=== PATIENT | female | born 1980 | race Asian ===

== ENCOUNTER → 2016-08-11 | Outpatient (CLI) | payer OTHER ==
[~2016-08-11] MED LIST: ACET50TA PO; IBUP80TA PO
[2016-08-11 12:20] LABS: MEAN CORPUSCULAR HEMOGLOBIN 34.3 pg (27.0-33.0); MEAN CORPUSCULAR HGB CONC 34.7 g/dl (32.0-36.5); MEAN CORPUSCULAR VOLUME 99.1 fl (80.0-96.0); RED CELL DISTRIBUTION WIDTH 12.7 % (11.5-14.5)
[2016-08-11 12:29] LABS: ALBUMIN 2.6 GM/DL (3.2-5.2); ALBUMIN/GLOBULIN RATIO 0.81 (1.00-1.93); ALKALINE PHOSPHATASE 101 U/L (45-117); ALT/SGPT 27 U/L (12-78); ANION GAP 10 MEQ/L (8-16); AST/SGOT 27 U/L (15-37); BILIRUBIN,TOTAL 0.2 MG/DL (0.2-1.0); BLOOD UREA NITROGEN 12 MG/DL (7-18); CALCIUM LEVEL 9.4 MG/DL (8.5-10.1); CARBON DIOXIDE LEVEL 24 MEQ/L (21-32); CHLORIDE LEVEL 106 MEQ/L (98-107); GLOMERULAR FILTRATION RATE > 60.0 (>60); GLUCOSE, FASTING 83 MG/DL (70-105); POTASSIUM SERUM 4.3 MEQ/L (3.5-5.1); SODIUM LEVEL 140 MEQ/L (136-145); TOTAL PROTEIN 5.8 GM/DL (6.4-8.2); URIC ACID 4.3 MG/DL (2.6-6.0)
== END ==
LOC: M LAB 11:21
PROVIDERS: ATTEND Obstetrics & Gynecology
DX: I10 Essential (primary) hypertension (principal)

== ENCOUNTER 2016-08-25 10:19 | Inpatient (IN) | payer OTHER ==
[~2016-08-25] VITALS: Ht 165.1 cm; Wt 110.0 kg
[2016-08-25] VITALS (25 sets, daily range): BP systolic 109–162; BP diastolic 55–96
[2016-08-25] MEDS ORDERED: PRENTAB9 PO (10:28)
[2016-08-25] MEDS ORDERED: WELLTAB38 PO (10:28)
[2016-08-25] MEDS ORDERED: MAG Sulf (OBGYN) 20GM/500ML 20,000 MG in APPROPRIATE DILUENT 1 EA IV SCH (10:53)
[2016-08-25] MEDS ORDERED: LR 1,000 ML IV SCH ×3 (10:53→18:59)
[2016-08-25] MEDS ORDERED: LABETALOL HCL 100 MG/20 ML VIAL IV ONE (11:00)
[2016-08-25] MEDS ORDERED: CALCIUM GLUCONATE 1,000 MG in D5W MINI-BAG PLUS 100 ML IV PRN (11:00)
[2016-08-25] MEDS ORDERED: BICITRA 30ML SOLN UDC PO ONE (11:00)
[2016-08-25] MEDS ORDERED: MAG Sulf (L&D) 4 GM/100 ML 4 GM in APPROPRIATE DILUENT 1 EA IV ONE (11:00)
[2016-08-25 12:20] LABS: MEAN CORPUSCULAR HEMOGLOBIN 33.9 pg (27.0-33.0); MEAN CORPUSCULAR HGB CONC 34.3 g/dl (32.0-36.5); MEAN CORPUSCULAR VOLUME 98.8 fl (80.0-96.0); RED CELL DISTRIBUTION WIDTH 12.7 % (11.5-14.5); WHITE BLOOD COUNT 6.3 K/mm3 (4.0-10.0)
[2016-08-25 12:23] LABS: ALBUMIN 2.4 GM/DL (3.2-5.2); ALBUMIN/GLOBULIN RATIO 0.77 (1.00-1.93); ALKALINE PHOSPHATASE 109 U/L (45-117); ALT/SGPT 23 U/L (12-78); ANION GAP 7 MEQ/L (8-16); AST/SGOT 26 U/L (15-37); BILIRUBIN,TOTAL 0.1 MG/DL (0.2-1.0); BLOOD UREA NITROGEN 11 MG/DL (7-18); CALCIUM LEVEL 8.4 MG/DL (8.5-10.1); CARBON DIOXIDE LEVEL 23 MEQ/L (21-32); CHLORIDE LEVEL 109 MEQ/L (98-107); CREATININE FOR GFR 0.57 MG/DL (0.55-1.02); GLOMERULAR FILTRATION RATE > 60.0 (>60); GLUCOSE, FASTING 94 MG/DL (70-105); SODIUM LEVEL 139 MEQ/L (136-145); TOTAL PROTEIN 5.5 GM/DL (6.4-8.2); URIC ACID 5.2 MG/DL (2.6-6.0)
[2016-08-25] MEDS ORDERED: METOCLOPRAMIDE INJ 10MG/2ML VIAL (J2765) IV PRN ×2 (17:03)
[2016-08-25] MEDS ORDERED: NALOXONE INJ 0.4 MG/1 ML VIAL (J2310) IV PRN ×4 (17:03)
[2016-08-25] MEDS ORDERED: NALBUPHINE HCL 10 MG/ML AMP (J2300) IV PRN ×2 (17:03→18:45)
[2016-08-25] MEDS ORDERED: ONDANSETRON 4MG/2ML VIAL (J2405) IV PRN ×4 (17:03→19:00)
[2016-08-25] MEDS ORDERED: ePHEDrine SULFATE 25 MG/5 ML(5MG/ML) SYRINGE As Ordered ONE ×2 (17:17→17:26)
[2016-08-25] MEDS ORDERED: PHENYLephrine HCL 500 MCG/5 ML (100MCG/ML) SYRINGE (J2370) As Ordered ONE ×2 (17:17→17:26)
[2016-08-25] MEDS ORDERED: MORPHINE PRES-FREE INJ 10 MG/10 ML VIAL (J2274) As Ordered ONE (17:17)
[2016-08-25] MEDS ORDERED: KETOROLAC 60 MG/2 ML VIAL (J1885) As Ordered ONE (17:17)
[2016-08-25] MEDS ORDERED: dexameTHASONE 4 MG/ML 1ML VIAL (J1100) As Ordered ONE ×2 (17:17→17:47)
[2016-08-25] MEDS ORDERED: OXYTOCIN INJ 10 UNITS/ML VIAL (J2590) As Ordered ONE (17:17)
[2016-08-25] MEDS ORDERED: ONDANSETRON 4MG/2ML VIAL (J2405) As Ordered ONE ×3 (17:17→19:13)
[2016-08-25] MEDS ORDERED: METOCLOPRAMIDE INJ 10MG/2ML VIAL (J2765) As Ordered ONE (17:24)
[2016-08-25] MEDS ORDERED: fentaNYL 100 MCG/2 ML INJECTION (J3010) IV PRN (18:45)
[2016-08-25] MEDS ORDERED: MEPERIDINE INJ 25 MG/ML VIAL (J2175) IV PRN (18:45)
[2016-08-25] MEDS ORDERED: RHOGAM 300 MCG (1500 IU) INJ (J2790) IM SCH (19:00)
[2016-08-25] MEDS ORDERED: MEASLES,MUMPS,RUBELLA VACCINE INJ (MMR-II) (90707) SC SCH (19:00)
[2016-08-25] MEDS ORDERED: PROMETHAZINE 25 MG TAB PO PRN (19:00)
[2016-08-25] MEDS ORDERED: fentaNYL 100 MCG/2 ML INJECTION (J3010) As Ordered ONE (19:08)
[2016-08-25] MEDS: MAG Sulf (OBGYN) 20GM/500ML 20,000 MG in APPROPRIATE DILUENT 1 EA IV SCH (20:24)
[2016-08-25] MEDS: LR 1,000 ML IV SCH (20:30)
[2016-08-25] MEDS: DOCUSATE SODIUM 100 MG CAP PO SCH (21:00)
[2016-08-25] MEDS: NALBUPHINE HCL 10 MG/ML AMP (J2300) IV PRN (22:00)
[2016-08-25] MEDS: KETOROLAC 30 MG/ML VIAL (J1885) IV SCH (22:49)
[2016-08-26] VITALS (10 sets, daily range): BP systolic 121–147; BP diastolic 58–86
[2016-08-26] MEDS: LR 1,000 ML IV SCH (02:59)
[2016-08-26] MEDS: NALBUPHINE HCL 10 MG/ML AMP (J2300) IV PRN (05:09)
[2016-08-26] MEDS: KETOROLAC 30 MG/ML VIAL (J1885) IV SCH ×3 (05:09→18:24)
[2016-08-26] MEDS: MAG Sulf (OBGYN) 20GM/500ML 20,000 MG in APPROPRIATE DILUENT 1 EA IV SCH (05:39)
[2016-08-26 07:08] LABS: MEAN CORPUSCULAR HEMOGLOBIN 33.9 pg (27.0-33.0); MEAN CORPUSCULAR HGB CONC 34.4 g/dl (32.0-36.5); MEAN CORPUSCULAR VOLUME 98.7 fl (80.0-96.0); RED CELL DISTRIBUTION WIDTH 12.7 % (11.5-14.5); WHITE BLOOD COUNT 9.7 K/mm3 (4.0-10.0)
[2016-08-26] MEDS: PRENATAL VITAMIN TAB PO SCH (09:00)
[2016-08-26] MEDS: DOCUSATE SODIUM 100 MG CAP PO SCH ×3 (14:54→21:00)
[2016-08-26] MEDS: PERCOCET 5MG/325MG TAB PO PRN (21:33)
[2016-08-26] MEDS: zolPIDEM TARTRATE 5 MG TAB PO PRN (21:33)
[2016-08-27] MEDS: IBUPROFEN 800 MG TAB PO SCH ×3 (01:09→19:38)
[2016-08-27] MEDS: PERCOCET 5MG/325MG TAB PO PRN ×4 (01:10→20:52)
[2016-08-27 01:49] VITALS: BP 123/71
[2016-08-27 06:28] VITALS: BP 144/71
[2016-08-27] MEDS: DOCUSATE SODIUM 100 MG CAP PO SCH ×2 (08:47→20:51)
[2016-08-27] MEDS: PRENATAL VITAMIN TAB PO SCH (08:47)
[2016-08-27] MEDS ORDERED: ADACEL/BOOSTRIX VACCINE (DIPHTH/PERTUSS/ACELL/TETANUS)0.5ML SYR (90715) IM ONE (09:00)
[2016-08-27 09:56] VITALS: BP 145/76
[2016-08-27 14:00] VITALS: BP 168/83
[2016-08-27 18:00] VITALS: BP 129/66
[2016-08-27] MEDS: zolPIDEM TARTRATE 5 MG TAB PO PRN (20:51)
[2016-08-27 22:00] VITALS: BP 141/67
[2016-08-28 02:00] VITALS: BP 144/70
[2016-08-28] MEDS: PERCOCET 5MG/325MG TAB PO PRN ×2 (02:37→08:00)
[2016-08-28] MEDS: IBUPROFEN 800 MG TAB PO SCH ×2 (02:37→08:00)
[2016-08-28 05:53] VITALS: BP 147/76
[2016-08-28] MEDS: PRENATAL VITAMIN TAB PO SCH (07:59)
[2016-08-28] MEDS: DOCUSATE SODIUM 100 MG CAP PO SCH (07:59)
[2016-08-28] MEDS ORDERED: OXYC1TAB23 PO (09:47)
[2016-08-28] MEDS ORDERED: IBUP-1114 PO (09:47)
[2016-08-28] MEDS ORDERED: COLA100C3 PO (09:47)
--- NOTE | 2016-09-08 07:07 | RO ---
DATE OF PROCEDURE: 08/25/2016 PREOPERATIVE DIAGNOSES: 1. Intrauterine at 34 and 5 weeks estimated gestational age. 2. Di/Di twin gestation. 3. Malpresentation. 4. Preeclampsia with severe features. POSTOPERATIVE DIAGNOSES: 1. Intrauterine at 34 and 5 weeks estimated gestational age. 2. Di/Di twin gestation. 3. Malpresentation. 4. Preeclampsia with severe features. 5. Delivered. PROCEDURE PERFORMED: Primary low transverse section and bilateral tubal ligation. SURGEON: Estefani Garcia MD BARK SKINNER: Casandra Locke MD ANESTHESIA: Spinal. PREOPERATIVE ANTIBIOTICS: Ancef 2 grams IV times one prior to skin incision. COMPLICATIONS: None. FINDINGS: Two viable male infants. score 8 and 9 and 8 and 8, respectively. Weight 2210 grams for baby A and 2644 grams for baby B. Normal uterus, tubes and ovaries bilaterally. INDICATION: The patient is a 36-year-old, (G) 4, para (P) 2-0-1-2, at 34 and 5 weeks estimated gestational age who has preeclampsia with severe features noted by severe range blood pressures and proteinuria, therefore requiring delivery. The patient also noted to have fetuses both in the dmitriy breech positions. Decision was made to proceed with a primary low transverse section. The patient also desires no further fertility, so decision was made to proceed with a tubal ligation. DESCRIPTION OF PROCEDURE: The risks, benefits, indications and alternatives of the procedure were reviewed with the patient and informed consent was obtained. The patient was taken to the operating room where spinal anesthesia was obtained without difficulty. She was then prepped and draped in a normal sterile fashion for the procedures above. A Pfannenstiel skin incision was then made with a scalpel and carried through to the underlying layer of fascia. The fascia was then incised in the midline and incision extended laterally with the scissors. Superior aspect of the fascial incision was then grasped with the Lars clamps, elevated and underlying rectus muscles dissected off bluntly. was then turned to the inferior aspect of the incision, which in similar fashion, was grasped, tented up with the Lars clamps abdomen the rectus muscles dissected off with the Stahl scissors. Rectus muscles were then in the midline and the peritoneum was then tented up and entered digitally. The peritoneal incision was then extended horizontally with good visualization of the bladder. The bladder blade was then inserted. The lower uterine segment was then incised in a transverse fashion with the scalpel. The uterine incision was then extended manually. The amniotic sac was artificially ruptured, productive of clear fluid. The bladder blade was then removed. The head delivered atraumatically in occiput anterior (OA) position through the hysterotomy without difficulty. The nose and mouth were suctioned with a bulb syringe and the cord doubly clamped and cut. The was handed off the awaiting measurement and verification engineer. The second amniotic sac was then ruptured, productive of clear fluid. The infant B's head delivered atraumatically in the OA position through the hysterotomy without difficulty. The nose and mouth were suctioned with a bulb syringe and the cord doubly clamped and cut, and the infant was handed off to the awaiting measurement and verification engineer. The placenta was then removed. Continued to do gentle traction on the umbilical cord. The uterus was then exteriorized and cleared of all clots and debris. The uterine incision was repaired with #0 Vicryl in a running locked fashion. A second layer of #0 Vicryl was then used to imbricate the hysterotomy. Posterior cul-de-sac was then irrigated. Attention was then turned to the right fallopian tube. It was followed out to its fimbriated end. The mid isthmus portion was grasped with a Neoga and the mesosalpinx below it was divided using a Bovie cautery. A [place] tubal ligation was performed on the right fallopian tube and the section was then removed with hemostatic. The same procedure was performed on the left. The uterus was returned to the abdomen and the hysterotomy was then again noted to be hemostatic. The pedicles and gutters were irrigated, cleared of all clots and debris. Fascia was then reapproximated with #0 Vicryl in a running fashion. The subcutaneous layer was closed with #0 Vicryl in a running fashion. The skin was closed with #3-0 Monopril and on a Rubin needle in subcuticular fashion. The incision was then dressed with Steri-Strips and a pressure dressing applied. At the completion of the case, bimanual exam performed with good uterine tone and minimal vaginal bleeding. The patient tolerated procedure well. Sponge, lap and needle counts were correct times three. The patient was taken to the recovery room in stable condition.
== END 2016-08-28 10:30 | disposition home or self-care (01) | DRG 765 ==
LOC: M LDI 10:19 → M OBS 20:01
PROVIDERS: ADMIT Obstetrics & Gynecology; ATTEND Obstetrics & Gynecology
PROC: 0UB70ZZ Excision of Bilateral Fallopian Tubes, Open Approach (ICD-10-PCS; 2016-08-25)
PROC: 10D00Z1 Extraction of Products of Conception, Low, Open Approach (ICD-10-PCS; principal; 2016-08-25 18:20)
DX: O14.14 Severe pre-eclampsia complicating childbirth (principal); O30.043 Twin pregnancy, dichorionic/diamniotic, third trimester; O24.420 Gestational diabetes mellitus in childbirth, diet controlled; O99.344 Other mental disorders complicating childbirth; Z3A.34 34 weeks gestation of pregnancy; F32.9 Major depressive disorder, single episode, unspecified; Z88.2 Allergy status to sulfonamides; O32.1XX1 Maternal care for breech presentation, fetus 1; O32.1XX2 Maternal care for breech presentation, fetus 2; Z37.2 Twins, both liveborn; Z30.2 Encounter for sterilization

== ENCOUNTER → 2016-10-23 | Outpatient (CLI) | payer OTHER ==
[~2016-10-23] MED LIST changes: +COLA100C3 PO; +IBUP-1114 PO; +OXYC1TAB23 PO; +PRENTAB9 PO; +WELLTAB38 PO
--- NOTE | 2016-10-23 13:12 | REP ---
ULTRASOUND BILATERAL BREASTS: Bilateral breast ultrasound performed. Right breast is imaged between 10-12 o'clock where there is reportedly a palpable abnormality. No cystic or solid nodule is seen. There are some dilated ducts posterior to the nipple containing some debris. Left breast is imaged between 12-2 o'clock at the site of a reported palpable abnormality. No cystic or solid nodule is seen. There are some dilated ducts posterior to the nipple containing some debris. IMPRESSION: No cystic or solid mass at the site of the palpable abnormality bilaterally. There are bilateral dilated ducts. ACR 2 benign. Signed by Buzz Calix MD 10/23/2016 03:26 P
== END ==
LOC: M RAD 11:28
PROVIDERS: ATTEND Obstetrics & Gynecology
DX: Z39.1 Encounter for care and examination of lactating mother (principal); N60.49 Mammary duct ectasia of unspecified breast
CPT/HCPCS: 76642; G0463